=== PATIENT | male | born 1960 | race Caucasian/White ===

== ENCOUNTER 2024-07-21 12:56 | Outpatient (CLI) | payer MEDICARE, OTHER | END 2024-07-21 12:57 | disposition home or self-care (01) | LOC: CT 12:56 | PROVIDERS: ATTEND Orthopaedic Surgery | DX: M17.11 Unilateral primary osteoarthritis, right knee (principal); M17.0 Bilateral primary osteoarthritis of knee; Z01.818 Encounter for other preprocedural examination | CPT/HCPCS: 71046; 80048; 81001; 85025; 85610; 87081; 93005 ==

== ENCOUNTER 2024-07-21 13:39 | Outpatient (CLI) | payer MEDICARE, OTHER ==
[2024-07-21 14:48] LABS: #Basophils 0.05 10x3/uL (0.0-0.2); %Basophils 0.5 % (0.0-1.0); %Eosinophils 0.8 % (0.0-10.0); %Lymphocytes 24.1 % (21.0-51.0); %Monocytes 9.3 % (0.0-10.0); %Neutrophils 64.9 % (42.0-75.0); Hematocrit 45.2 % (42.0-52.0); Hemoglobin 15.1 g/dL (14.0-18.0); Mean Corpuscular HGB CONC 33.4 g/dL (32.0-36.0); Mean Corpuscular Hemoglobin 29.6 pg (27.0-31.0); Mean Corpuscular Volume 88.6 fL (78.0-98.0); Platelet Count 253 10x3/uL (130-400); RBC Distribution Width 12.8 % (11.5-14.5)
[2024-07-21 15:03] LABS: Anion Gap 13 mmol/L (10-20); BUN (Urea Nitrogen) 15 mg/dL (8.4-25.7); Calc. Creatinine Clearance 0 mL/min (70-130); Calcium 9.2 mg/dL (7.8-10.44); Carbon Dioxide 26 mmol/L (23-31); Chloride 105 mmol/L (98-107); Estimated GFR 74; Glucose 122 mg/dL (80-115); Potassium 3.8 mmol/L (3.5-5.1); Prothrombin Time 13.4 sec (12.0-14.7); Sodium 140 mmol/L (136-145)
[2024-07-21 15:06] LABS: Bacteria/HPF None Seen HPF (None Seen); Bilirubin Negative (Negative); Blood, Urine Negative (Negative); Clarity Clear (Clear); Glucose, Urine (Dipstick) Greater than 1000 mg/dL (Negative); Ketone, Urine Negative (Negative); Leukocyte Negative Leu/uL (Negative); Nitrite Negative (Negative); Protein, Urine (Dipstick) Negative (Neg-Trace); RBC/HPF 0-3 HPF (0-3); Specific Gravity, Urine 1.031 (1.002-1.036); Squamous Epithelial None Seen HPF (0-3); Urobilinogen Normal mg/dL (Less than 2); WBC/HPF 0-3 HPF (0-3)
== END 2024-07-21 13:40 | disposition home or self-care (01) ==
LOC: LABBT 13:39
PROVIDERS: ATTEND Orthopaedic Surgery
DX: Z01.818 Encounter for other preprocedural examination (principal); M17.0 Bilateral primary osteoarthritis of knee
CPT/HCPCS: 71046; 80048; 81001; 85025; 85610; 87081; 93005; 93010